=== PATIENT | female | born 1975 | race Caucasian/White ===

== ENCOUNTER 2016-07-05 12:59 | Day surgery (SDC) | payer BC ==
--- NOTE | ~2016-07-05 | EGD ---
EGD REPORT [facility] [address] [address] NAME: LYUDMILA PORRAS : [birth year] STATUS : [facility]#: [id number] AGE: 40 ADM/REG DATE : 07/05/16 MR#: [id number] REPORT SERV DATE: 07/09/16 DICTATED BY: EVANS VAUGHAN DATE: 07/09/16 REPORT STATUS : Draft [facility]ANS[facility]: [facility] DATE: 07/09/16 Endoscopy Center Patient Name: Lyudmila Porras Date of : 1975 Attending MD: EVANS VAUGHAN MD Procedure Date No Time: 07/05/2016 Procedure: Colonoscopy Indications: Change in bowel habits, Constipation Referring MD: Debi Cruz Medicines: Monitored Anesthesia Care Complications: No immediate complications. Procedure: Pre-Anesthesia Assessment: - ASA Grade Assessment: III - A patient with severe systemic disease. After I obtained informed consent, the scope was passed under direct vision. Throughout the procedure, the patient's blood pressure, pulse, and oxygen saturations were monitored continuously. The PCF H190L [id number] was introduced through the anus and advanced to the terminal ileum, with identification of the appendiceal orifice and IC valve. The colonoscopy was performed with moderate difficulty due to a tortuous colon. Successful completion of the procedure was aided by applying abdominal pressure. The patient tolerated the procedure well. The quality of the bowel preparation was fair. Findings: The digital rectal exam was normal. Pertinent negatives include no palpable rectal lesions. The terminal ileum appeared normal. Four sessile polyps were found in the sigmoid colon. The polyps were 3 to 4 mm in size. These polyps were removed with a cold biopsy forceps. Resection and retrieval were complete. Two sessile polyps were found in the rectum. The polyps were 2 to 4 mm in size. These polyps were removed with a cold biopsy forceps. Resection and retrieval were complete. Hemorrhoids were found during retroflexion and were mild. Impression: - The examined portion of the ileum was normal. - Four 3 to 4 mm polyps in the sigmoid colon. Resected and retrieved. - Two 2 to 4 mm polyps in the rectum. Resected and retrieved. - Hemorrhoids. EGD REPORT [address] [address] NAME: LYUDMILA PORRAS : [birth year] STATUS : [facility] PAT#: [id number] AGE: 40 ADM/REG DATE : 07/05/16 MR#: [id number] REPORT SERV DATE: 07/09/16 DICTATED BY: EVANS VAUGHAN DATE: 07/09/16 REPORT STATUS : Draft TRANSCRIBED BY: [employer] DATE: 07/09/16 Recommendation: - Patient has a contact number available for emergencies. The signs and symptoms of potential delayed complications were discussed with the patient. Return to normal activities tomorrow. Written discharge instructions were provided to the patient. - Repeat colonoscopy for surveillance based on pathology results. Procedure Code(s): --- Professional --- 77415, Colonoscopy, flexible, proximal to splenic flexure; with biopsy, single or multiple Diagnosis Code(s): --- Professional --- K64.9, Unspecified hemorrhoids K62.1, Rectal polyp D12.5, Benign neoplasm of sigmoid colon R19.4, Change in bowel habit K59.00, Constipation, unspecified CPT copyright 2013 [employer]. All rights reserved. The codes documented in this report are preliminary and upon pathologist assistant review may be revised to meet current compliance requirements. EVANS VAUGHAN MD 07/05/2016 2:20 PM This report has been signed electronically. Number of Addenda: 0 Note Initiated On: 07/05/2016 1:51 PM Scope Withdrawal Time 0 hours 10 minutes 5 seconds [id number] [place] [id number]
--- NOTE | ~2016-07-05 | EGD ---
EGD REPORT [facility] [address] [address] NAME: LYUDMILA PORRAS : [birth year] STATUS : [facility] PAT#: [id number] AGE: 40 ADM/REG DATE : 07/05/16 MR#: [id number] REPORT SERV DATE: 07/09/16 DICTATED BY: EVANS VAUGHAN DATE: 07/09/16 REPORT STATUS : Draft TRANSCRIBED BY: [facility] DATE: 07/09/16 THIS EXAM WAS SENT IN ERROR
--- NOTE | ~2016-07-05 | EGD ---
EGD REPORT [facility] [address] [address] NAME: LYUDMILA PORRAS : [birth year] STATUS : [facility]#: [id number] AGE: 40 ADM/REG DATE : 07/05/16 MR#: [id number] REPORT SERV DATE: 07/09/16 DICTATED BY: EVANS VAUGHAN DATE: 07/09/16 REPORT STATUS : Draft [facility]: [facility] DATE: 07/09/16 Endoscopy Center Patient Name: Lyudmila Porras Date of : 1975 Attending MD: EVANS VAUGHAN MD Procedure Date No Time: 07/05/2016 Procedure: Colonoscopy Indications: Change in bowel habits, Constipation Referring MD: Debi Cruz Medicines: Monitored Anesthesia Care Complications: No immediate complications. Procedure: Pre-Anesthesia Assessment: - ASA Grade Assessment: III - A patient with severe systemic disease. After I obtained informed consent, the scope was passed under direct vision. Throughout the procedure, the patient's blood pressure, pulse, and oxygen saturations were monitored continuously. The PCF [id number] was introduced through the anus and advanced to the terminal ileum, with identification of the appendiceal orifice and IC valve. The colonoscopy was performed with moderate difficulty due to a tortuous colon. Successful completion of the procedure was aided by applying abdominal pressure. The patient tolerated the procedure well. The quality of the bowel preparation was fair. Findings: The digital rectal exam was normal. Pertinent negatives include no palpable rectal lesions. The terminal ileum appeared normal. Four sessile polyps were found in the sigmoid colon. The polyps were 3 to 4 mm in size. These polyps were removed with a cold biopsy forceps. Resection and retrieval were complete. Two sessile polyps were found in the rectum. The polyps were 2 to 4 mm in size. These polyps were removed with a cold biopsy forceps. Resection and retrieval were complete. Hemorrhoids were found during retroflexion and were mild. Impression: - The examined portion of the ileum was normal. - Four 3 to 4 mm polyps in the sigmoid colon. Resected and retrieved. - Two 2 to 4 mm polyps in the rectum. Resected and retrieved. - Hemorrhoids. EGD REPORT [address] [address] NAME: LYUDMILA PORRAS : [birth year] STATUS : [facility] PAT#: [id number] AGE: 40 ADM/REG DATE : 07/05/16 MR#: [id number] REPORT SERV DATE: 07/09/16 DICTATED BY: EVANS VAUGHAN DATE: 07/09/16 REPORT STATUS : Draft TRANSCRIBED BY: [employer] DATE: 07/09/16 Recommendation: - Patient has a contact number available for emergencies. The signs and symptoms of potential delayed complications were discussed with the patient. Return to normal activities tomorrow. Written discharge instructions were provided to the patient. - Repeat colonoscopy for surveillance based on pathology results. Procedure Code(s): --- Professional --- 79210, Colonoscopy, flexible, proximal to splenic flexure; with biopsy, single or multiple Diagnosis Code(s): --- Professional --- K64.9, Unspecified hemorrhoids K62.1, Rectal polyp D12.5, Benign neoplasm of sigmoid colon R19.4, Change in bowel habit K59.00, Constipation, unspecified CPT copyright 2013 [employer]. All rights reserved. The codes documented in this report are preliminary and upon technology lab teacher review may be revised to meet current compliance requirements. EVANS VAUGHAN MD 07/05/2016 2:20 PM This report has been signed electronically. Number of Addenda: 0 Note Initiated On: 07/05/2016 1:51 PM Scope Withdrawal Time 0 hours 10 minutes 5 seconds [id number] [place] [id number]
[~2016-07-05 12:59] MED LIST: ADVAIR250 INH; IBU-200200 MG PO; VENTOLIN HFA INH
== END 2016-07-05 23:59 | disposition home or self-care (01) ==
LOC: DMU 12:59
PROVIDERS: Internal Medicine Gastroenterology
PROC: 0DBP8ZX Excision of Rectum, Via Natural or Artificial Opening Endoscopic, Diagnostic (ICD-10-PCS; 2016-07-05)
PROC: 0DB38ZX Excision of Lower Esophagus, Via Natural or Artificial Opening Endoscopic, Diagnostic (ICD-10-PCS; principal; 2016-07-05 14:00)
PROC: 0DBN8ZX Excision of Sigmoid Colon, Via Natural or Artificial Opening Endoscopic, Diagnostic (ICD-10-PCS; 2016-07-05 14:00)
DX: K63.5 Polyp of colon (principal); K62.1 Rectal polyp; K64.9 Unspecified hemorrhoids; K59.00 Constipation, unspecified; J40 Bronchitis, not specified as acute or chronic; K22.9 Disease of esophagus, unspecified; F17.210 Nicotine dependence, cigarettes, uncomplicated; F41.9 Anxiety disorder, unspecified; Z79.899 Other long term (current) drug therapy; Z98.51 Tubal ligation status; Z90.89 Acquired absence of other organs; Z90.49 Acquired absence of other specified parts of digestive tract; Z98.890 Other specified postprocedural states
CPT/HCPCS: 84703; 88305